=== PATIENT | female | born 1985 | race Caucasian/White ===

== ENCOUNTER 2016-09-21 17:05 | Emergency (ER) | payer OTHER ==
[2016-09-21] MEDS ORDERED: DIPH,PERTUSS(ACELL),TET VAC/PF 0.5 ML DISP.SYRIN IM ONE (17:20)
--- NOTE | 2016-09-21 17:25 | ED Physician Documentation ---
Skin Rash - HISTORIAN Historian: patient - HPI Chief Complaint: Skin Rash Onset: days ago Timing: worse Location: other (right lower leg) Identified Cause?: Yes (scratched on alva wire) Further Comments: yes (31 year old female patient presents with abrasion from alva wire, scratched on Monday. Concerned it is infected, history of MRSA. LMP 09/06/2015, last tetanus unknown.) - ROS CONST: none CVS/RESP: none EYES/ENT: none GI/: none MS/SKIN/LYMPH: none NEURO/PSYCH: none - PAST HX Past History: other (MRSA) Allergies/Adverse Reactions: Allergies Allergy/AdvReac Type Severity Reaction Status Date / Time No Known Allergies Allergy Verified 09/21/16 17:16 Home Medications: Ambulatory Orders Medication Instructions Recorded Unobtainable [Unobtainable] 09/21/16 - SOCIAL HX Smoking History: cigarettes Drug Use: methamphetamines (history of abuse) - FAMILY HX Family History: denies: none - VITAL SIGNS Vital Signs: Vital Signs Temp Pulse Resp BP Pulse Ox 98.8 F 72 18 119/86 98 09/21/16 17:35 09/21/16 17:35 09/21/16 17:35 09/21/16 17:35 09/21/16 17:35 - REVIEWED ASSESSMENTS Nursing Assessment Reviewed: Yes Vitals Reviewed: Yes ED Results Lab/Radiology - Orders Orders: ED Orders Category Date Time Status Diph,Pertuss(Acell),Tet Vac/Pf [Adacel] Med 09/21/16 17:20 Discontinued 0.5 ml IM .ONCE ONE Skin Rash Physical Exam - EXAM General Appearance: mild distress Skin: warm,dry, other (right anterior lower leg with abrasion 4.5 cm; mild erythema, no drainage. ) Location: extremities (right lower leg) Symptoms: warmth, tenderness. No: swelling Extremities: non-tender, nml ROM, no edema Neuro/Psych: oriented x3, CN's nml as tested, motor nml, sensation nml, mood/ affect nml Discharge Clincal Impression: Abrasion, Cellulitis of right lower leg Referrals: Primary Doctor,No [Primary Care Provider] - 2 Days Additional Instructions: Clean the abrasion twice a day with hibiclens and rinse with water Apply thin coat of antibiotic ointment after cleaning the wound. Cover with non-adherent bandage if able. Home Medications: Ambulatory Orders Unobtainable [Unobtainable] 09/21/16 Condition: Stable Disposition: 01 HOME, SELF-CARE Decision to Admit: NO Decision Time: 17:25
[2016-09-21 17:27] VITALS: BP 119/86
== END 2016-09-21 17:35 | disposition home or self-care (01) ==
LOC: ED 17:05
DX: L03.116 Cellulitis of left lower limb (principal); T14.8 Other injury of unspecified body region; X58.XXXA Exposure to other specified factors, initial encounter; Y93.9 Activity, unspecified; Y99.9 Unspecified external cause status
CPT/HCPCS: 90471; 90715; 99283